=== PATIENT | male | born 1960 | race Caucasian/White ===

== ENCOUNTER 2022-05-23 10:34 | Outpatient (CLI) | payer BC, SELFPAY ==
[2022-05-23 19:20] LABS: Chloride* 103 mmol/L (96-114); Potassium* 4.2 mmol/L (3.6-5.1); Sodium* 137 mmol/L (135-149)
[2022-05-23 19:22] LABS: Cholesterol* 197 mg/dL (90-199); Creatinine* 0.9 mg/dL (0.5-1.5); Estimated Glomerular Filt Rate 95.37
[2022-05-23 19:23] LABS: Blood Urea Nitrogen* 14 mg/dL (7-30); Carbon Dioxide* 24 mmol/L (20-32); Glucose* 102 mg/dL (60-115); Triglycerides* 231 mg/dL (40-149)
[2022-05-23 19:24] LABS: HDL Cholesterol* 49 mg/dL (>=40); LDL Cholesterol Calculated 102 mg/dL (<100)
[2022-05-23 19:51] LABS: PSA Screen* 1.12 ng/mL (0.10-4.00)
== END 2022-05-23 10:35 | disposition home or self-care (01) ==
PROVIDERS: PCP Family Medicine; Visit Provider Family Medicine
DX: Z00.00 Encounter for general adult medical examination without abnormal findings (principal); E78.5 Hyperlipidemia, unspecified; I25.10 Atherosclerotic heart disease of native coronary artery without angina pectoris; M41.9 Scoliosis, unspecified; Z80.42 Family history of malignant neoplasm of prostate; Z13.0 Encounter for screening for diseases of the blood and blood-forming organs and certain disorders involving the immune mechanism
CPT/HCPCS: 80048; 80061; 84153

== ENCOUNTER 2023-06-11 09:04 | Outpatient (CLI) | payer MEDICARE, SELFPAY | END 2023-06-11 09:05 | disposition home or self-care (01) | PROVIDERS: PCP Family Medicine; Visit Provider Family Medicine | DX: E78.5 Hyperlipidemia, unspecified (principal); I25.10 Atherosclerotic heart disease of native coronary artery without angina pectoris; Z13.1 Encounter for screening for diabetes mellitus; Z12.5 Encounter for screening for malignant neoplasm of prostate; Z13.0 Encounter for screening for diseases of the blood and blood-forming organs and certain disorders involving the immune mechanism | CPT/HCPCS: 80048; 80061; 84153 ==

== ENCOUNTER 2024-08-18 08:26 | Outpatient (CLI) | payer MEDICARE, SELFPAY | END 2024-08-18 08:27 | disposition home or self-care (01) | PROVIDERS: PCP Family Medicine; Visit Provider Family Medicine | DX: E78.2 Mixed hyperlipidemia (principal); Z80.42 Family history of malignant neoplasm of prostate; Z13.21 Encounter for screening for nutritional disorder; Z12.5 Encounter for screening for malignant neoplasm of prostate | CPT/HCPCS: 80048; 80061; 82607; G0103 ==

== ENCOUNTER 2025-08-30 15:28 | Outpatient (CLI) | payer MEDICARE, SELFPAY | END 2025-08-30 15:29 | disposition home or self-care (01) | PROVIDERS: PCP Family Medicine; Visit Provider Family Medicine | DX: Z12.5 Encounter for screening for malignant neoplasm of prostate (principal); I25.10 Atherosclerotic heart disease of native coronary artery without angina pectoris; E78.5 Hyperlipidemia, unspecified | CPT/HCPCS: 80048; 80061; 84443; G0103 ==